=== PATIENT | male | born 1990 | race Native Hawaiian/Other Pacific Islander ===

== ENCOUNTER 2019-12-16 21:55 | Emergency (ER) | payer OTHER ==
[~2019-12-16] VITALS: Ht 172.7 cm; Wt 107.5 kg
[2019-12-16 22:00] VITALS: BP 143/76; TEMP 98.8
== END 2019-12-16 22:50 | disposition home or self-care (01) ==
LOC: ED 21:55
DX: M54.5 Low back pain (principal)
CPT/HCPCS: 99281